=== PATIENT | female | born 1980 | race Hispanic/Latino ===

== ENCOUNTER 2017-11-28 11:32 | Emergency (ER) | payer OTHER, SELFPAY ==
[2017-11-28] MEDS ORDERED: Acetaminophen 500 MG TAB ONE ×2 (12:59→13:03)
== END 2017-11-28 13:10 ==
LOC: ERS 11:32
DX: T78.01XA Anaphylactic reaction due to peanuts, initial encounter (principal); F17.210 Nicotine dependence, cigarettes, uncomplicated
CPT/HCPCS: 99284

== ENCOUNTER 2017-11-28 21:39 | Observation (INO) | payer OTHER, SELFPAY ==
[2017-11-28] MEDS ORDERED: Famotidine/PF 20 mg/2ml Vial ONE (21:55)
[2017-11-28] MEDS ORDERED: Famotidine 20 MG TAB ONE (21:58)
--- NOTE | 2017-11-28 22:33 | RAD ---
PORTABLE CHEST ONE VIEW: 11/28/17 at 9:22 p.m. HISTORY: Dyspnea. FINDINGS: The heart size is normal. The lungs are expanded without focal areas of consolidation, pneumothoraces or pleural effusions. IMPRESSION: No radiographic evidence of acute cardiopulmonary process. POS: [facility]
[2017-11-28 22:47] LABS: ALT (SGPT) 9 U/L (8-55); AST (SGOT) 13 U/L (5-34); Albumin 4.1 g/dL (3.5-5.0); Alkaline Phosphatase 41 U/L (40-150); Anion Gap 16 mmol/L (10-20); BUN (Urea Nitrogen) 12 mg/dL (7.0-18.7); Bilirubin, Total 0.2 mg/dL (0.2-1.2); Calc. Creatinine Clearance 0 mL/min (70-130); Calcium 8.9 mg/dL (7.8-10.44); Carbon Dioxide 15 mmol/L (22-29); Chloride 112 mmol/L (98-107); Estimated GFR-MDRD 78; Globulin 2.7 g/dL (2.4-3.5); Glucose 217 mg/dL (70-105); Potassium 3.4 mmol/L (3.5-5.1); Protein, Total 6.8 g/dL (6.0-8.3); Sodium 140 mmol/L (136-145)
[2017-11-28 22:53] LABS: #Basophils 0.1 thou/uL (0.0-0.2); #Lymphocytes 0.7 thou/uL (1.20-3.40); #Monocytes 0.1 thou/uL (0.11-0.59); #Neutrophils 5.6 thou/uL (1.40-6.50); %Basophils 1.1 % (0.0-1.0); %Eosinophils 0.2 % (0.0-10.0); %Lymphocytes 10.8 % (21.0-51.0); %Monocytes 0.9 % (0.0-10.0); %Neutrophils 87.1 % (42.0-75.0); Anisocytosis SLIGHT = 6-15 cells (100X) (0-5/hpf); Hemoglobin 7.3 g/dL (12.0-16.0); Hypochromia SLIGHT = 6-15 cells (100X) (0-5/hpf); MDiff Complete? YES; Mean Corpuscular HGB CONC 29.8 g/dL (32.0-36.0); Mean Corpuscular Hemoglobin 21.9 pg (27.0-31.0); Mean Corpuscular Volume 73.3 fL (78.0-98.0); Mean Platelet Volume 8.7 fL (7.4-10.4); Microcytosis SLIGHT = 6-15 cells (100X) (0-5/hpf); Platelet Count 352 thou/uL (130-400); Red Blood Cell (RBC) Count 3.34 mill/uL (4.20-5.40); White Blood Cell (WBC) Count 6.4 thou/uL (4.8-10.8)
[2017-11-29] MEDS ORDERED: Sodium Chloride For Inhalation 0.9% 3 ML NEB ONE ×3 (00:15→00:37)
[2017-11-29] MEDS ORDERED: Albuterol Sulfate 2.5 mg/0.5 ml Neb ONE ×2 (00:35)
[2017-11-29] MEDS: Sodium Chloride 0.9% 1,000 ML IV SCH ×2 (11:16→21:12)
[2017-11-29] MEDS ORDERED: Albuterol Sulfate 2.5 mg/0.5 ml Neb NEB PRN (11:26)
[2017-11-29] MEDS ORDERED: diphenhydrAMINE 50 MG/ML VIAL IVP PRN (11:27)
[2017-11-29] MEDS ORDERED: ALPRAZolam 0.25 MG TAB PO PRN (11:28)
[2017-11-29 13:07] VITALS: BMI 38.5
[2017-11-29] MEDS: Clindamycin 150 MG CAP PO SCH ×2 (14:58→21:05)
[2017-11-29] MEDS ORDERED: HumaLOG 300 UNITS/3 ML VIAL SC PRN ×2 (15:01)
[2017-11-29] MEDS ORDERED: Dextrose 5% in Water 1,000 ML IV PRN (15:01)
[2017-11-29] MEDS ORDERED: Dextrose 50% Abboject 50 ML SYRINGE SLOW IVP PRN (15:01)
--- NOTE | 2017-11-29 15:34 | HP ---
REASON FOR ADMISSION: Anaphylaxis. HISTORY OF PRESENT ILLNESS: The patient gives history of receiving antibiotics for dental caries 2 days back. She also ate peanut butter a day before. Soon after an hour or so, the patient's lips started to swell up. She developed itching all over and felt short of breath. They initially told her at the shelter facility that it could be because of peanut butter. Yesterday, she in fact got Benadryl and went to sleep. Yesterday morning, the patient again got her amoxicillin and had the same issue with lip swelling up, generalized itching and shortness of breath and could not swallow well. She was brought from [facility] for the same. Upon arrival, the patient has received steroids and Pepcid and Benadryl. She is feeling better this morning. Has no complaints of difficulty swallowing. Her lip swelling is coming down at present. No complaints of chest pain or palpitation. PAST MEDICAL AND SURGICAL HISTORY: Bipolar disorder, depression, history of asthma, x1. CURRENT MEDICATIONS: None. ALLERGIES: Hallucinates with morphine and Ultram. Otherwise, no known drug allergies. PERSONAL HISTORY: Quit smoking 3 months back, prior to that smoked 10 cigarettes a day for nearly 20 years. She also quit cocaine in 2009 when she went to skilled nursing. She was also abusing marijuana before that. Does not abuse alcohol. [facility] FAMILY HISTORY: She does not know much about her mother. Father of lung cancer and its complications. He also had Meniere's disease when he was 58 years old. Patient has 2 children, 18 and 13 years old, power of collections attorney is her step-mom, Ms. Lary Oscar. CODE STATUS: FULL. REVIEW OF SYSTEMS: The following complete review of systems was negative, unless otherwise mentioned in the HPI or below: Constitutional: Weight loss or gain, ability to conduct usual activities. Skin: Rash, itching. Eyes: Double vision, pain. ENT/Mouth: Nose bleeding, neck stiffness, pain, tenderness. Cardiovascular: Palpitations, dyspnea on exertion, orthopnea. Respiratory: Shortness of breath, wheezing, cough, hemoptysis, fever or night sweats. Gastrointestinal: Poor appetite, abdominal pain, heartburn, nausea, vomiting, constipation, or diarrhea. Genitourinary: Urgency, frequency, dysuria, nocturia. Musculoskeletal: Pain, swelling. Neurologic/Psychiatric: Anxiety, depression. Allergy/Immunologic: Skin rash, bleeding tendency. PHYSICAL EXAMINATION: GENERAL: The patient is a 37-year-old female who is currently not in any acute distress. VITAL SIGNS: Blood pressure 98/50, pulse 50 per minute, respiratory rate 16 per minute, temperature 97.3 degrees Fahrenheit, saturating 96% on room air. NECK: Supple, no elevated JVD. HEENT: Extraocular muscles intact. Pupils reacting to light. Oral cavity, mucous membranes are moist. No obvious edema or congestion seen. Tongue is normal. Lips are appearing normal at present. CARDIOVASCULAR: S1, S2 heard. Regular rhythm. RESPIRATORY: Air entry 1+ bilateral. Scattered rhonchi plus no rales or wheezes. ABDOMEN: Soft, bowel sounds heard. No tenderness, rigidity, or guarding. EXTREMITIES: No peripheral edema or calf tenderness. VASCULAR SYSTEM: Peripheral pulses 2+ bilateral, no ischemic ulcerations or gangrene. CENTRAL NERVOUS SYSTEM: No gross focal deficits noted. Patient is alert, awake , oriented well. PSYCHIATRIC: The patient's mood is euthymic. No hallucinations or delusions. LABORATORY AND X-RAY FINDINGS: White count of 6, H&H 7 and 24, platelet count is 352, MCV is 73 with 87% neutrophils. Serum bicarbonate is 15, BUN 12, creatinine 0.8, serum potassium is 3.4. Serum glucose 217. AST, ALT, alkaline phosphatase are within normal limits. Albumin is 4.1. Chest x-ray done shows no acute cardiopulmonary abnormalities. EKG on telemetry shows sinus rhythm between 70-80 beats per minute. CLINICAL IMPRESSION AND PLAN: Patient will be under observation on medical floor. She is currently in IM and will be transferred. She will be on Solu- Medrol 40 mg IV q.6 hourly along with Benadryl 25 mg q.6 hourly p.r.n. Pepcid 20 mg twice daily. We will switch her antibiotics to clindamycin for her dental caries. The patient is mildly hypotensive and will place her on normal saline at 100 mL per hour. The patient appears to have chronic microcytic anemia and will obtain iron studies and stool occult blood as well. She also appears to have glucose intolerance with steroids given to her with serum glucose in the 200s and will be on coverage for now. If the patient remains hemodynamically stable, she will be discharged back to skilled nursing back to shelter facility in the morning. JEEVAN
[2017-11-29 17:07] LABS: Iron 11 ug/dL (50-170); Iron Binding Capacity, Total 381 mcg/dL (265-497)
[2017-11-29] MEDS: Ferrous Sulfate 325 MG TAB PO SCH (17:21)
[2017-11-29 17:46] LABS: Folate (Folic Acid) 11.8 ng/mL (7.0-31.4)
[2017-11-29] MEDS ORDERED: Acetaminophen 325 MG TAB PO PRN (20:21)
[2017-11-29] MEDS: Famotidine/PF 20 mg/2ml Vial SLOW IVP SCH (21:06)
[2017-11-30] MEDS: Clindamycin 150 MG CAP PO SCH (05:58)
[2017-11-30] MEDS: Ferrous Sulfate 325 MG TAB PO SCH (07:46)
[2017-11-30] MEDS: Famotidine/PF 20 mg/2ml Vial SLOW IVP SCH (07:47)
[2017-11-30 07:59] VITALS: BP 108/68; TEMP 96.7
--- NOTE | 2017-11-30 11:16 | DIS ---
DATE OF ADMISSION: 11/29/2017 DATE OF DISCHARGE: 11/30/2017 DISCHARGE DIAGNOSES: 1. Allergic reaction to AMOXICILLIN. 2. Drug eruption. 3. Shortness of breath. 4. Iron deficiency anemia. 5. Dental caries. 6. B12 deficiency. HISTORY: The patient is a 37-year-old female who was incarcerated in the [facility]. The patient w as having some pain attributable to a possible dental caries with some abscess. She was started on a moxicillin. Subsequently, she developed a drug eruption and some subjective shortness of breath and presented to the emergency department. HOSPITAL COURSE: The patient was admitted with what appeared to be a drug reaction secondary to amox icillin with some concern for anaphylaxis given her subjective shortness of breath. The patient was placed in observation, started on IV Solu-Medrol, nebulizer treatments as needed and Benadryl as need ed. Amoxicillin was discontinued and she was placed on clindamycin. Subsequently, patient did well. She had no further evidence of any reactions, no shortness of breath. Vital signs remained stable and blood sugars, actually tolerated the steroids fairly well. Patient was initially placed in the IMCU. She had borderline blood pressures in the 90s. She was gi sherrell some IV fluids and appeared to respond to that, she appeared to be asymptomatic and it is unknown what her baseline blood pressure is. PHYSICAL EXAMINATION: VITAL SIGNS: On the day of discharge, temperature 97.6, pulse 78, respirations 16, O2 sat 99% on dominik m air, BP 108/68. GENERAL APPEARANCE: Patient is awake, alert, oriented, pleasant, cooperative. She is in no distress . HEART: Regular rate and rhythm without murmurs. LUNGS: Clear to auscultation bilaterally with good chest wall expansion and air exchange. ABDOMEN: Soft, nontender, nondistended. EXTREMITIES: Warm and dry. SKIN: No edema. LABORATORY DATA: Blood sugars 124. DISPOSITION: Patient will be discharged back to the [facility]. DISCHARGE MEDICATIONS: She will be on clindamycin 300 mg p.o. q.8 hours, prednisone 20 mg p.o. daily for 2 days and then 10 mg p.o. daily for 2 days. She will also be on ferrous sulfate 325 one p.o. b .i.d. as the patient's labs in the hospital indicated total iron binding capacity of 381, percent sat 3%, ferritin 2.86 and folate was 11.8. Foltx 1 p.o. daily. Vitamin B12 was low at 183. She will have a regular diet. Her activity level is as tolerated. She should follow up with the provider at the [facility]. She can return to the emergency department sh ould she have any problems prior to that time.
== END 2017-11-30 11:47 ==
LOC: ERS 21:39 → T4-A 11-29 02:55 → IMCU/EMU 11-29 11:15 → T4-A 11-29 14:55
PROVIDERS: ADMIT Hospitalist; ATTEND Hospitalist
DX: R22.0 Localized swelling, mass and lump, head (principal); L29.9 Pruritus, unspecified; R06.02 Shortness of breath; T36.0X5A Adverse effect of penicillins, initial encounter; F31.9 Bipolar disorder, unspecified; D50.9 Iron deficiency anemia, unspecified; E53.8 Deficiency of other specified B group vitamins; K02.9 Dental caries, unspecified; J45.909 Unspecified asthma, uncomplicated; F12.11 Cannabis abuse, in remission; Z87.891 Personal history of nicotine dependence; Z88.5 Allergy status to narcotic agent
CPT/HCPCS: 36415; 36416; 71045; 80053; 82607; 82728; 82746; 83540; 83550; 85025; 90471; 90686; 94640; 96360; 96361; 96374; 96375; 96376; G0008; G0378; J2920; J7611; J7620; S0028